=== PATIENT | female | born 1990 | race Caucasian/White ===

== ENCOUNTER 2017-10-26 19:29 | Emergency (ER) | payer OTHER ==
[2017-10-26 19:43] VITALS: BP 119/69; PULSE 81; TEMP 98.9; BMI 25.3
--- NOTE | 2017-10-26 20:39 | PDOC ---
History of Present Illness - General History Source: Patient Exam Limitations: No Limitations - History of Present Illness Initial Comments: 10/26/17 20:41 The patient is a 27 year old female 21 weeks , accompanied by , with no significant PMH, who presents to the emergency department with 1 day of sore throat, dry cough and measured fever of 102 F last night. Patients is present at bedside translating for the patient, he states the patient took Tylenol at 10 pm last night for the fever with mild relief. He states the patient is also complaining of pain while swallowing, fatigue and ear pain. 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 He states the patient takes vitamins and follows with her BARREL PLANER. He states the patient had a throat infection for which she took antibiotics more than 3 years ago when she was in [facility] but states the patient has not had any recent travel. The patient denies chest pain, shortness of breath, headache and dizziness. Denies nausea, vomit, diarrhea and constipation. Denies dysuria, frequency, urgency and hematuria. Allergies: NKA Social History: Denies tobacco use, EtOH use or recreational drug use. <Howard Cross - Last Filed: 10/26/17 20:46> <Maria Dolores Miguel - Last Filed: 10/27/17 03:06> - General Chief Complaint: Cold Symptoms Stated Complaint: COUGH, MALAISE Time Seen by Provider: 10/26/17 19:38 Past History <Howard Cross - Last Filed: 10/26/17 20:46> - Past Medical History Asthma: No Cancer: No Cardiac Disorders: No COPD: No Diabetes: No HTN: No Seizures: No Thyroid Disease: No - Suicide/Smoking/Psychosocial Hx Smoking History: Never smoked Have you smoked in the past 12 months: No Hx Alcohol Use: No Drug/Substance Use Hx: No Substance Use Type: None Hx Substance Use Treatment: No <Maria Dolores Miguel - Last Filed: 10/27/17 03:06> - Past Medical History Allergies/Adverse Reactions: Allergies Allergy/AdvReac Type Severity Reaction Status Date / Time No Known Allergies Allergy Verified 07/30/15 09:46 Home Medications: Ambulatory Orders Vit/Iron Fum/Folic AC [ Tablet] 1 each PO DAILY 07/14/15 Ferrous Sulfate [Feosol] 325 mg PO BID #90 tablet 08/12/15 Review of Systems - Review of Systems Comments:: 10/26/17 20:41 GENERAL/CONSTITUTIONAL: +Fever. +Fatigue. HEAD, EYES, EARS, NOSE AND THROAT: +Ear pain. +Sore throat. No change in vision. CARDIOVASCULAR: No chest pain or shortness of breath. RESPIRATORY: +Dry cough. No wheezing, or hemoptysis. GASTROINTESTINAL: No nausea, vomiting, diarrhea or constipation. GENITOURINARY: No dysuria, frequency, or change in urination. MUSCULOSKELETAL: No joint or muscle swelling or pain. No neck or back pain. SKIN: No rash NEUROLOGIC: No headache, vertigo, loss of consciousness, or change in strength/ sensation. ENDOCRINE: No increased thirst. No abnormal weight change. HEMATOLOGIC/LYMPHATIC: No anemia, easy bleeding, or history of blood clots. ALLERGIC/IMMUNOLOGIC: No hives or skin allergy. <Howard Cross - Last Filed: 10/26/17 20:46> *Physical Exam - Vital Signs Last Vital Signs Temp Pulse Resp BP Pulse Ox 98.9 F 81 18 119/69 100 10/26/17 19:31 10/26/17 19:31 10/26/17 19:31 10/26/17 19:31 10/26/17 19:31 - Physical Exam Comments: 10/26/17 20:42 GENERAL: Awake, alert, and fully oriented, in no acute distress HEAD: No signs of trauma EYES: PERRLA, EOMI, sclera anicteric, conjunctiva clear ENT: +Moderate erythema of pharynx. No exudates or edema. Auricles normal inspection, hearing grossly normal, nares patent. Moist mucosa NECK: +Bilateral tenderness and enlarged anterior cervical lymph nodes. Normal ROM, supple. LUNGS: Breath sounds equal, clear to auscultation bilaterally. No wheezes, and no crackles HEART: Regular rate and rhythm, normal S1 and S2, no murmurs, rubs or gallops ABDOMEN: Soft, nontender, normoactive bowel sounds. No guarding, no rebound. No masses EXTREMITIES: Normal range of motion, no edema. No clubbing or cyanosis. No cords, erythema, or tenderness NEUROLOGICAL: Cranial nerves II through XII grossly intact. Normal speech, normal gait SKIN: Warm, Dry, normal turgor, no rashes or lesions noted. <Howard Cross - Last Filed: 10/26/17 20:46> - Vital Signs Last Vital Signs Temp Pulse Resp BP Pulse Ox 98.9 F 81 18 119/69 100 10/26/17 19:31 10/26/17 19:31 10/26/17 19:31 10/26/17 19:31 10/26/17 19:31 <Maria Dolores Miguel - Last Filed: 10/27/17 03:06> Progress Note - Progress Note Progress Note: Documentation has been prepared under my direction and personally reviewed by me in its entirety. I attest that this documented accurately reflects all work, treatment, procedures and medical decision making performed by me. <Maria Dolores Miguel - Last Filed: 10/27/17 03:06> Medical Decision Making - Medical Decision Making As noted above, this 27-year-old woman, 21 weeks , presents with 1 day history of sore throat/nonproductive cough. According to her , she cares for a young child who is recently had a cough. Otherwise, patient is in good health with no complications in the thus far. Exam as noted. Quick strep negative Throat culture pending. Likely viral origin of pharyngitis/early bronchitis. Patient is advised ( through her who is translating for her) to rest and drink plenty of fluids. She can take Tylenol as needed for fever or body aches. Otherwise, other medications should be avoided in . It was also explained that throat culture would be performed and if this is positive for strep, they will be called and prescription for amoxicillin will be transmitted to pharmacy. <Maria Dolores Miguel - Last Filed: 10/27/17 03:06> *DC/Admit/Observation/Transfer - Attestations Scribe Attestion: 10/26/17 20:42 Documentation prepared by Howard Cross, acting as medical lab technician for Maria Dolores Miguel MD. <Howard Cross - Last Filed: 10/26/17 20:46> <Maria Dolores Miguel - Last Filed: 10/27/17 03:06> Diagnosis at time of Disposition: Pharyngitis Qualifiers: Pharyngitis/tonsillitis etiology: unspecified etiology Qualified Code(s): J02.9 - Acute pharyngitis, unspecified - Discharge Dispostion Disposition: HOME Condition at time of disposition: Stable - Referrals Referrals: Efe Jaramillo MD [Primary Care Provider] - - Patient Instructions Printed Discharge Instructions: DI for Pharyngitis/Tonsillopharyngitis -- Adult Additional Instructions: Rest; drink plenty of fluids Tylenol as needed for pain or fever Follow-up with Dr Jaramillo within 1 week Follow-up with structural shop helper as scheduled Return to ER if throat pain is severe or there is persistent high fever Print Language: MONTSERRATIAN - Post Discharge Activity
== END 2017-10-26 21:16 | disposition home or self-care (01) ==
LOC: FER 19:29
DX: O26.892 Other specified pregnancy related conditions, second trimester (principal); Z3A.21 21 weeks gestation of pregnancy; J02.9 Acute pharyngitis, unspecified
CPT/HCPCS: 87070; 87077; 87430; 99281-25

== ENCOUNTER 2018-02-08 07:45 | Inpatient (IN) | payer OTHER ==
[2018-02-08 08:15] VITALS: BMI 26.8
[2018-02-08 08:47] LABS: BASO % 0.3 % (0-2.0); EOS % 3.2 % (0-4.5); HEMATOCRIT 29.8 % (32.4-45.2); LYMPH % 13.8 % (8-40); MCH 30.5 pg (25.7-33.7); MCHC 33.5 g/dl (32.0-36.0); MEAN CELL VOLUME 91.1 fl (80-96); MEAN PLT VOLUME 8.6 fl (7.5-11.1); NEUT % 77.7 % (42.8-82.8); PLATELET COUNT 295 K/MM3 (134-434); RBC 3.27 M/mm3 (3.60-5.2); RDW 13.8 % (11.6-15.6); WHITE BLOOD COUNT 5.7 K/mm3 (4.0-10.0)
--- NOTE | 2018-02-08 08:51 | PN ---
Progress Note (short form) - Note Progress Note: cx 2 cm 50 vx -2 mi, fhr cat 1, no contraction, cervidil risks discussed , crevidil inserted
[2018-02-08] MEDS ORDERED: BUTORPHANOL TARTRATE 1 MG/ML VIAL IVPUSH PRN (08:52)
[2018-02-08] MEDS ORDERED: DINOPROSTONE 10 MG VAGINAL SUPPOSITORY VG ONE (08:54)
[2018-02-08 08:59] LABS: INR 0.87 (0.83-1.09); PROTHROMBIN TIME (PATIENT) 10.3 SEC (9.7-13.0)
[2018-02-08] MEDS ORDERED: DEXTROSE 5%-LACTATED RINGERS 1,000 ML IV SCH (09:00)
[2018-02-08 09:02] LABS: ACTIVATED PTT 27.9 SECONDS (25.2-36.5)
[2018-02-08 09:15] LABS: ALBUMIN 2.6 g/dl (3.4-5.0); ALK PHOS 136 U/L (45-117); ANION GAP 8 MMOL/L (8-16); BILIRUBIN,TOTAL 0.3 mg/dL (0.2-1); BLOOD UREA NITROGEN 7 mg/dL (7-18); CHLORIDE 108 mmol/L (98-107); CO2 21 mmol/L (21-32); CREATININE 0.7 mg/dL (0.55-1.3); GLUCOSE,RANDOM 111 mg/dL (74-106); POTASSIUM 3.6 mmol/L (3.5-5.1); SGOT/AST 15 U/L (15-37); SGPT/ALT 21 U/L (13-61); SODIUM 138 mmol/L (136-145); TOT PROT 6.3 g/dl (6.4-8.2)
[2018-02-08] MEDS ORDERED: PROMETHAZINE HCL 25 MG/1 ML VIAL IVPUSH ONE (10:00)
[2018-02-08] MEDS ORDERED: AMPICILLIN SODIUM 2 GM VIAL ONE (10:19)
--- NOTE | 2018-02-08 15:01 | PN ---
Progress Note (short form) - Note Progress Note: cx 2 cm 50 vx -2 srom, clear , fhr cat 1, regular contraction
[2018-02-08] MEDS ORDERED: BUTORPHANOL TARTRATE 1 MG/ML VIAL ONE ×2 (16:20)
[2018-02-08] MEDS ORDERED: PROMETHAZINE HCL 25 MG/1 ML VIAL ONE (16:20)
--- NOTE | 2018-02-08 20:08 | PN ---
Progress Note (short form) - Note Progress Note: cx 4 cm 80 vx -2, forebag intact, arom, clear , fhr cat 1, contraction irregular , cervidil fell out. , wants epidural
[2018-02-08] MEDS ORDERED: FENTANYL/BUPIVACAINE/NS/PF - PCEA - 50 ML DISP.SYRIN EP ONE (20:09)
[2018-02-08] MEDS ORDERED: OXYTOCIN 30 UNITS in 0.9% NS 30 UNIT/500 ML INFUS.BAG IVPB SCH (20:15)
[2018-02-08] MEDS ORDERED: ELECTROLYTE-148 SOLN 1,000 ML IV SCH (20:15)
[2018-02-08] MEDS ORDERED: BUPIVACAINE HCL/PF 0.25% (2.5MG/ML) 10 ML VIAL ONE (20:23)
[2018-02-08] MEDS ORDERED: NALOXONE HCL 0.4 MG/ML VIAL IVPUSH PRN (20:37)
[2018-02-08] MEDS ORDERED: FENTANYL/BUPIVACAINE/NS/PF - PCEA - 50 ML DISP.SYRIN EP SCH (20:45)
[2018-02-08] MEDS ORDERED: LIDOCAINE HCL 1% PRESERVATIVE FREE - 30ML VIAL ONE (21:46)
[2018-02-08] MEDS ORDERED: OXYTOCIN 20 UNITS in 0.9% NS 20 UNIT/1,000 ML INFUS.BAG IV ONE (21:46)
[2018-02-08] MEDS ORDERED: BENZOCAINE 20% 57 GM BOTTLE TP PRN (22:02)
[2018-02-08] MEDS ORDERED: BENZOCAINE 28 GM HEMORRHOIDAL OINTMENT TP PRN (22:02)
[2018-02-08] MEDS ORDERED: WITCH HAZEL 50% (TUCKS) 40 PAD/JAR PAD TP PRN (22:02)
[2018-02-08] MEDS ORDERED: METHYLERGONOVINE MALEATE 0.2 MG/1 ML AMP IM PRN (22:02)
[2018-02-08] MEDS ORDERED: BISACODYL 10 MG SUPP.RECT RC PRN (22:02)
[2018-02-08] MEDS ORDERED: OXYTOCIN 20 UNITS in 0.9% NS 20 UNIT/1,000 ML INFUS.BAG IV SCH (22:15)
[2018-02-08] MEDS ORDERED: ACETAMINOPHEN 325 MG TABLET (FP) ONE (22:30)
[2018-02-08] MEDS: ACETAMINOPHEN 325 MG TABLET (FP) PO PRN (22:30)
[2018-02-08] MEDS: IBUPROFEN 600 MG TABLET (FP) PO PRN (22:30)
[2018-02-08] MEDS ORDERED: IBUPROFEN 600 MG TABLET (FP) PO ONE (22:30)
[2018-02-08 22:33] LABS: ARTERIAL BLD GAS O2 SATURATION 75.8 % (90-98.9); ARTERIAL BLOOD GAS BASE EXCESS -1.6 meq/l (-2-2); ARTERIAL BLOOD GAS PCO2 42.4 mmHg (35-45); ARTERIAL BLOOD GAS pH 7.36 (7.35-7.45)
[2018-02-08 22:37] LABS: VENOUS PC02 67.9 mmHg (38-52); VENOUS PO2 21.8 mmHg (28-48)
[2018-02-08 22:42] LABS: ARTERIAL BLOOD GAS PO2 35.1 mmHg (80-100); VENOUS PH 7.23 (7.32-7.42)
[2018-02-08] MEDS: guaiFENesin 200 MG/10 ML 10 ML UNIT-DOSE CUPS PO PRN (22:57)
--- NOTE | 2018-02-09 07:38 | PN ---
Progress Note (short form) - Note Progress Note: ppd 1, doing well, no excess vaginal bleeding CBC, BMP 02/08/18 08:30 02/08/18 08:30 Last Vital Signs Temp Pulse Resp BP Pulse Ox 98 F 76 18 111/69 100 02/09/18 06:00 02/09/18 06:00 02/09/18 06:00 02/09/18 06:00 02/08/18 21:45 abdomen soft, no distension, no cva uterus firm, non tender lochia mild no calf tenderness plan ambulate , cbc
[2018-02-09] MEDS: FERROUS SO4 325 MG TABLET (FP) PO SCH ×2 (08:26→17:33)
[2018-02-09] MEDS: IBUPROFEN 600 MG TABLET (FP) PO PRN ×2 (08:26→20:38)
[2018-02-09] MEDS: ACETAMINOPHEN 325 MG TABLET (FP) PO PRN ×2 (08:27→20:37)
[2018-02-09] MEDS: guaiFENesin 200 MG/10 ML 10 ML UNIT-DOSE CUPS PO PRN ×3 (08:30→20:38)
[2018-02-09 08:36] LABS: BASO % 0.4 % (0-2.0); EOS % 2.1 % (0-4.5); HEMATOCRIT 28.7 % (32.4-45.2); HEMOGLOBIN 9.3 GM/dL (10.7-15.3); LYMPH % 17.9 % (8-40); MCH 29.8 pg (25.7-33.7); MCHC 32.4 g/dl (32.0-36.0); MEAN CELL VOLUME 92.1 fl (80-96); MEAN PLT VOLUME 8.5 fl (7.5-11.1); MONO % 5.6 % (3.8-10.2); PLATELET COUNT 237 K/MM3 (134-434); RBC 3.11 M/mm3 (3.60-5.2); RDW 13.5 % (11.6-15.6)
[2018-02-09] MEDS: PRENATAL VITAMINS W/ FOLIC ACID TABLET (FP) PO SCH (10:35)
[2018-02-09] MEDS ORDERED: SENNOSIDES/DOCUSATE COMBO (SENNA PLUS) TABLET (UD) PO PRN (22:00)
[2018-02-10] MEDS: FERROUS SO4 325 MG TABLET (FP) PO SCH (08:00)
[2018-02-10] MEDS: PRENATAL VITAMINS W/ FOLIC ACID TABLET (FP) PO SCH (10:16)
[2018-02-10 12:22] VITALS: BP 105/57; PULSE 88; TEMP 98.6
--- NOTE | 2018-02-10 16:35 | DS ---
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 Vital Signs: Vital Signs Temperature 98.6 F 02/10/18 10:00 Pulse Rate 88 02/10/18 10:00 Respiratory Rate 20 02/10/18 10:00 Blood Pressure 105/57 L 02/10/18 10:00 O2 Sat by Pulse Oximetry (%) 100 02/08/18 21:45 Constitutional: Yes: Well Nourished, No Distress, Calm Eyes: Yes: WNL, Conjunctiva Clear, EOM Intact HENT: Yes: WNL, Atraumatic, Normocephalic Neck: Yes: WNL, Supple, Trachea Midline Cardiovascular: Yes: WNL, Regular Rate and Rhythm Respiratory: Yes: WNL, Regular, CTA Bilaterally Gastrointestinal: Yes: WNL ...Rectal Exam: Yes: WNL Renal/: Yes: WNL Vaginal Exam: Yes: Normal Cervix: Yes: Normal ....Post : Yes: Uterus firm, Uterus non-tender, Slight lochia rubra Breast(s): Yes: WNL Musculoskeletal: Yes: WNL Extremities: Yes: WNL Edema: No Integumentary: Yes: WNL Neurological: Yes: WNL, Alert, Oriented ...Motor Strength: WNL Psychiatric: Yes: WNL, Alert, Oriented Labs: CBC, BMP 02/09/18 08:00 02/08/18 08:30 Delivery - Delivery Vaginal Delivery: Spontaneous (no complication) Type of Anesthesia: Epidural Episiotomy/Laceration: None EBL (cc): 300 Delivery, Single - Stages of Labor Date 1st Stage Initiatied: 02/08/18 Time 1st Stage Initiated: 15:00 Date 2nd Stage Initiated: 02/08/18 Time 2nd Stage Initiated: 21:45 Date of Delivery: 02/08/18 Time of Delivery: 21:52 Time Placenta Delivered: 21:56 Placenta: Yes: Spontaneous - Condition of Recordings Librarian/Transport Engineer Present: No Gender: Male Weight: 5 lb 3 oz Position: Left, OA Total Hours ROM (Hrs/Mins): 1HOUR/42min - 1 Minute Total Score: 9 5 Minutes Total Score: 9 Discharge Summary Reason For Visit: INDUCTION OF LABOR Procedures: Principal: Hospital Course: no complication Condition: Good - Instructions Diet, Activity, Other Instructions: regular diet, no intercourse, if pain, vaginal bleeding , fever call MD Referrals: Chuy Decker MD [Staff Physician] - Disposition: HOME - Home Medications Comprehensive Discharge Medication List: Ambulatory Orders Vit/Iron Fum/Folic AC [ Tablet] 1 each PO DAILY 07/14/15 Ferrous Sulfate [Feosol] 325 mg PO BID #90 tablet 08/12/15 Ibuprofen [Motrin -] 400 mg PO QID #28 tablet 02/09/18
== END 2018-02-10 14:00 | disposition home or self-care (01) | DRG 560 ==
LOC: JLDR 07:45 → J3W 23:32
PROVIDERS: ADMIT Obstetrics & Gynecology; ATTEND Obstetrics & Gynecology
PROC: 10E0XZZ Delivery of Products of Conception, External Approach (ICD-10-PCS; principal; 2018-02-08)
PROC: 3E0P7VZ Introduction of Hormone into Female Reproductive, Via Natural or Artificial Opening (ICD-10-PCS; 2018-02-08)
DX: O80 Encounter for full-term uncomplicated delivery (principal); Z3A.37 37 weeks gestation of pregnancy; Z37.0 Single live birth
CPT/HCPCS: 36415; 36600; 59409; 71046-TC-FY; 80053; 82803; 85025; 85610; 85730; 86593; 86850; 86900; 86901